=== PATIENT | female | born 1990 | race Caucasian/White ===

== ENCOUNTER 2017-02-05 08:04 | Emergency (ER) | payer OTHER ==
[2017-02-05 08:19] VITALS: BP 107/70
--- NOTE | 2017-02-05 08:51 | UC ---
Throat Pain/Nasal Cm HPI - HPI Summary HPI Summary: Pt presents with c/o gradual worsening of nasal congestion, sinus pressure and MCKEON X 5-6 days. Pt has known seasonal allergies and positive PMH for sinusitis. - History of Current Complaint Chief Complaint: UCRespiratory Stated Complaint: SINUS PRESSURE Time Seen by Provider: 02/05/17 08:23 Hx Obtained From: Patient Hx Last Menstrual Period: ~01/10/17 ?: No Onset/Duration: Gradual Onset, Lasting Days - 5-6 Severity: Moderate Associated Signs & Symptoms: Positive: Sinus Discomfort, Other - MCKEON, generalized malaise Related History: Seasonal Allergies - Allergies/Home Medications Allergies/Adverse Reactions: Allergies Allergy/AdvReac Type Severity Reaction Status Date / Time Clarithromycin [From Biaxin] Allergy Mild Vomiting Verified 02/05/17 08:11 Sulfamethoxazole Allergy Unknown Patient Verified 02/05/17 08:11 w/Trimethoprim does not [From Bactrim] know Home Medications: Home Medications Control Pill 1 tab PO QAM 02/05/17 [History] Phenylephrine W/ Acetaminophen [Tylenol Sinus Congestion 5-325 mg] 2 tab PO Q4H PRN 02/05/17 [History Confirmed 02/05/17] PMH/Surg Hx/FS Hx/Imm Hx Previously Healthy: Yes Respiratory History: Other - seasonal allergies, sinusitis Other Respiratory History: sinusitis, seasonal allergies - Surgical History Surgical History: Yes Surgery Procedure, Year, and Place[place] [facility] [place] Family History Known Family History: Positive: Other - positive [facility]H for URI - Social History Alcohol Use: Occasionally Substance Use Type: None Smoking Status (MU): Light Every Day Tobacco Smoker Type: Cigarettes Amount Used/How Often: /10 PPD Length of Time of Smoking/Using Tobacco: Since Age 24 Have You Smoked in the Last Year: Yes - Immunization History Most Recent Influenza Vaccination: Not the 2016/2017 Season Most Recent Tetanus Shot: 10/02/13 Most Recent Pneumonia Vaccination: n/a Review of Systems Constitutional: Fatigue Skin: Negative Eyes: Negative ENT: Other - nasal congestion, sinus pressure Respiratory: Negative Cardiovascular: Negative Gastrointestinal: Negative Genitourinary: Negative Motor: Negative Neurovascular: Negative Musculoskeletal: Negative Neurological: Headache Psychological: Negative All Other Systems Reviewed And Are Negative: Yes Physical Exam Triage Information Reviewed: Yes Appearance: Ill-Appearing Vital Signs: Initial Vital Signs Temp 97.7 F 02/05/17 08:09 Pulse 64 02/05/17 08:09 Resp 16 02/05/17 08:09 BP 107/70 02/05/17 08:09 Pulse Ox 100 02/05/17 08:09 Vital Signs Reviewed: Yes Eye Exam: Normal ENT Exam: Other ENT: Positive: Nasal congestion, TM bulging, Other: - maxillary sinus tenderness Neck exam: Normal Respiratory Exam: Normal Cardiovascular Exam: Normal Musculoskeletal Exam: Normal Neurological Exam: Normal Psychological Exam: Normal Skin Exam: Normal Throat Pain/Nasal Course/Dx - Differential Dx/Diagnosis Differential Diagnosis/HQI/PQRI: Sinusitis, Other - allergic rhinitis Provider Diagnoses: sinusitis. allergic rhinitis Discharge - Discharge Plan Condition: Stable Disposition: HOME Prescriptions: Amoxicillin (*) [Amoxicillin 875 MG (*)] 875 mg PO BID #14 tab Fexofenadine-Pseudoephedrine [Lexie-D 24 Hour Allergy] 1 tab PO DAILY #14 tab Fluticasone NASAL SPRAY 50MCG* [Flonase NASAL SPRAY 50MCG*] 2 spray BOTH NARES DAILY #1 btl Patient Education Materials: Sinusitis (ED), Allergic Rhinitis (ED) Referrals: Nicole Perez PA [Physician Nurse Private Duty] - If Needed
== END 2017-02-05 09:00 | disposition home or self-care (01) ==
LOC: UCCORT 08:04
DX: J32.9 Chronic sinusitis, unspecified (principal); J30.9 Allergic rhinitis, unspecified; F17.210 Nicotine dependence, cigarettes, uncomplicated
CPT/HCPCS: 99212; G0463

== ENCOUNTER 2017-06-02 12:41 | Emergency (ER) | payer OTHER ==
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
[2017-06-02 12:57] VITALS: BP 103/70
== END 2017-06-02 13:12 | disposition home or self-care (01) ==
LOC: UCCORT 12:41
DX: S09.8XXA Other specified injuries of head, initial encounter (principal); V89.2XXA Person injured in unspecified motor-vehicle accident, traffic, initial encounter; Y93.9 Activity, unspecified; Y92.9 Unspecified place or not applicable; Y99.9 Unspecified external cause status; Z88.1 Allergy status to other antibiotic agents; Z88.2 Allergy status to sulfonamides
CPT/HCPCS: 99212; G0463

== ENCOUNTER 2017-06-11 08:12 | Emergency (ER) | payer OTHER ==
[2017-06-11 08:21] VITALS: BP 126/77
[2017-06-11] MEDS ORDERED: Ibuprofen TAB* 400 MG PO ONE (08:27)
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
--- NOTE | 2017-06-11 08:49 | RAD ---
INDICATION: Right ankle injury. TECHNIQUE: 3 views of the right ankle were obtained. FINDINGS: Soft tissue swelling is noted along the anterolateral aspect of the ankle. No fracture is seen. Joint spaces appear maintained. IMPRESSION: SOFT TISSUE SWELLING, NO FRACTURE IS SEEN.
== END 2017-06-11 09:05 | disposition home or self-care (01) ==
LOC: UCCORT 08:12
DX: S93.401A Sprain of unspecified ligament of right ankle, initial encounter (principal); Z88.2 Allergy status to sulfonamides; F17.210 Nicotine dependence, cigarettes, uncomplicated; X50.1XXA Overexertion from prolonged static or awkward postures, initial encounter; Y92.9 Unspecified place or not applicable
CPT/HCPCS: 99213; A9270-GY; G0463

== ENCOUNTER 2018-05-09 08:44 | Emergency (ER) | payer BC, OTHER ==
[2018-05-09 09:15] VITALS: BP 104/65
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
== END 2018-05-09 10:08 | disposition home or self-care (01) ==
LOC: UCCORT 08:44
DX: J02.0 Streptococcal pharyngitis (principal); Z20.828 Contact with and (suspected) exposure to other viral communicable diseases; Z88.1 Allergy status to other antibiotic agents; Z87.891 Personal history of nicotine dependence
CPT/HCPCS: 87651; 99212; G0463

== ENCOUNTER 2019-01-16 07:55 | Emergency (ER) | payer BC ==
[2019-01-16 08:07] VITALS: BP 111/67
--- NOTE | 2019-01-16 08:30 | UC ---
Throat Pain/Nasal Cm HPI - HPI Summary HPI Summary: 28-year-old woman comes in with a chief complaint of sore throat. Started about 2 days ago. Got a lot worse overnight. Hurts to swallow. He's over-the- counter medications which do help some of the symptoms. Now also has ear pressure. Minimal rhinorrhea. No shortness of breath. - History of Current Complaint Chief Complaint: UCRespiratory Stated Complaint: ST,MCKEON Time Seen by Provider: 01/16/19 08:12 Hx Last Menstrual Period: 2 weeks Pain Intensity: 4 - Allergies/Home Medications Allergies/Adverse Reactions: Allergies Allergy/AdvReac Type Severity Reaction Status Date / Time clarithromycin [From Biaxin] Allergy Vomiting Verified 01/16/19 08:07 sulfamethoxazole Allergy Rash Verified 01/16/19 08:07 [From Bactrim] trimethoprim [From Bactrim] Allergy Rash Verified 01/16/19 08:07 Home Medications: Home Medications Ibuprofen/Pseudoephedrine HCl [Advil Cold & Sinus] 1 cap PO ONCE PRN 01/16/19 [ History Confirmed 01/16/19] PMH/Surg Hx/FS Hx/Imm Hx Previously Healthy: Yes - Surgical History Surgical History: Yes Surgery Procedure, Year, and Place: Right [place], 10[place]27[place] [facility] [place] - Family History Known Family History: Positive: Other - positive [facility] for URI - Social History Alcohol Use: Occasionally Substance Use Type: None Smoking Status (MU): Former Smoker Type: Cigarettes Amount Used/How Often: 1/10 PPD Length of Time of Smoking/Using Tobacco: Since Age 24 Have You Smoked in the Last Year: Yes When Did the Patient Quit Smoking/Using Tobacco: 8 months ago - Immunization History Most Recent Influenza Vaccination: none 2016 Most Recent Tetanus Shot: 10/02/13 Most Recent Pneumonia Vaccination: n/a Review of Systems All Other Systems Reviewed And Are Negative: Yes Constitutional: Positive: Negative Skin: Positive: Negative Eyes: Positive: Negative ENT: Positive: Sore Throat Respiratory: Positive: Negative Cardiovascular: Positive: Negative Gastrointestinal: Positive: Negative Motor: Positive: Negative Neurovascular: Positive: Negative Musculoskeletal: Positive: Negative Neurological: Positive: Negative Psychological: Positive: Negative Is Patient Immunocompromised?: No Physical Exam Triage Information Reviewed: Yes Appearance: No Pain Distress, Well-Nourished, Ill-Appearing - MILD Vital Signs: Initial Vital Signs Temp 98.2 F 01/16/19 08:04 Pulse 76 01/16/19 08:04 Resp 20 01/16/19 08:04 BP 111/67 01/16/19 08:04 Pulse Ox 100 01/16/19 08:04 Vital Signs Reviewed: Yes Eye Exam: Normal Eyes: Positive: Conjunctiva Clear ENT: Positive: Pharyngeal erythema, Nasal congestion, Nasal drainage, TMs normal Neck: Positive: Supple Respiratory: Positive: Lungs clear, Normal breath sounds, No respiratory distress Cardiovascular: Positive: RRR Musculoskeletal Exam: Normal Musculoskeletal: Positive: Strength Intact, ROM Intact Neurological Exam: Normal Neurological: Positive: Alert, Muscle Tone Normal Psychological Exam: Normal Psychological: Positive: Age Appropriate Behavior Skin Exam: Normal Throat Pain/Nasal Course/Dx - Course Course Of Treatment: DISCUSSED VIRAL VERSES BACTERIAL INFECTION AND THE ROLE OF ANTIBIOTICS. THE PATIENT PREFERS TO BE ON ANTIBIOTICS AT THIS TIME. PATIENT REPORTS SHE OFTEN GETS YEAST INFECTIONS WHEN SHE IS ON ABX THEREFORE, DIFLUCAN RX. - Differential Dx/Diagnosis Provider Diagnosis: Pharyngitis Discharge - Sign-Out/Discharge Documenting (check all that apply): Patient Departure All imaging exams completed and their final reports reviewed: No Studies - Discharge Plan Condition: Stable Disposition: HOME Prescriptions: Amoxicillin PO (*) [Amoxicillin 875 MG (*)] 875 mg PO BID #20 tab Fluconazole [Diflucan 150 MG (NF)] 150 mg PO ONCE PRN #2 tab PRN Reason: Rash Patient Education Materials: Pharyngitis (ED) Referrals: [facility] [place] [facility] [Outside] Additional Instructions: FOLLOW UP WITH YOUR DOCTOR IF NOT COMPLETELY IMPROVED. GET RECHECKED SOONER IF YOUR CONDITION WORSENS OR ANY QUESTIONS OR CONCERNS. - Billing Disposition and Condition Condition: STABLE Disposition: Home
== END 2019-01-16 08:38 | disposition home or self-care (01) ==
LOC: UCCORT 07:55
DX: J02.9 Acute pharyngitis, unspecified (principal); Z87.891 Personal history of nicotine dependence; Z88.2 Allergy status to sulfonamides; Z88.1 Allergy status to other antibiotic agents
CPT/HCPCS: 87651; 99212; G0463

== ENCOUNTER 2022-04-06 19:08 | Observation (INO) ==
[2022-04-06] MEDS ORDERED: Buffered Lidocaine 1% SYRIN 1 ml INTRADERM ONE (20:22)
[2022-04-06] MEDS ORDERED: Lactated Ringers 1000 ml BAG 1,000 ML IV ONE (20:22)
[2022-04-06] MEDS ORDERED: Lactated Ringers 1000 ml BAG 1,000 ML IV SCH (21:00)
[2022-04-06 22:05] LABS: ABS Basophils 0.1 10^3/ul (0-0.2); ABS Lymphocytes 2.5 10^3/ul (1.0-4.8); ABS Monocytes 1.2 10^3/ul (0-0.8); ABS Neutrophils 10.7 10^3/ul (1.5-7.7); Eosinophil % 0.3 %; Hematocrit 31 % (35-47); Lymphocyte % 17.4 %; Mean Corpuscular HGB Conc 35 g/dL (31-36); Mean Corpuscular Hemoglobin 28 pg (27-31); Mean Corpuscular Volume 80 fL (80-97); Mean Platelet Volume 7.6 fL (7.4-10.4); Platelet Count 436 10^3/uL (150-450); Red Blood Count 3.95 10^6 /uL (3.70-4.87); Red Cell Distribution Width 14 % (10-15); White Blood Count 14.5 10^3/uL (3.5-10.8)
== END 2022-04-07 12:20 | disposition home or self-care (01) ==
LOC: MCHOBOUT 19:08 → INTOOBSV 19:30 → MCHOB 19:30
PROVIDERS: ADMIT Midwife; ATTEND Midwife